=== PATIENT | female | born 1985 | race Caucasian/White ===

== ENCOUNTER → 2017-02-15 08:05 | Outpatient (CLI) | payer MEDICARE ==
[2017-02-15 08:46] LABS: BASOPHILS 0.3 % (0-2); EOSINOPHILS 1.7 % (0-7); HEMATOCRIT 38.6 % (36.0-48.0); HEMOGLOBIN 12.8 g/dL (12-16); IMMATURE GRANULOCYTES 0.5 % (0-5); LYMPHOCYTES 40.3 % (15-50); MCH 28.4 pg (26.0-34.0); MCHC 33.2 g/dL (31.0-37.0); MCV 85.8 fL (80.0-100.0); MONOCYTES 7.2 % (2-11); PLATELET COUNT 301 10x3/uL (130-400); WBC 6.7 10x3/uL (4.8-10.8)
[2017-02-15 09:08] LABS: ALBUMIN 3.3 g/dL (3.4-5.0); ALKALINE PHOSPHATASE 50 U/L (46-116); ALT (SGPT) 32 U/L (10-68); BILIRUBIN - TOTAL 0.29 mg/dL (0.2-1.3); CALC OSMOLALITY 278 mosm/kg (275-300); CALCIUM 8.6 mg/dL (8.5-10.1); CARBON DIOXIDE 25.5 mmol/L (21.0-32.0); CHLORIDE - SERUM 105 mmol/L (98-107); CHOL - HDL RATIO 3.1 ratio (2.3-4.1); CHOLESTEROL, TOTAL 183 mg/dL (0-200); CREATININE - SERUM 0.8 mg/dL (0.6-1.3); GLUCOSE 84 mg/dL (74-106); HDL CHOLESTEROL 60 mg/dL (32-96); LDL CHOLESTEROL 108 mg/dL (0-100); LDL-HDL RATIO 1.8 ratio (1.5-3.5); POTASSIUM - SERUM 3.9 mmol/L (3.5-5.1); PROTEIN - SERUM 6.6 g/dL (6.4-8.2); SODIUM 140 mmol/L (136-145); T4 THYROXIN - FREE 1.07 ng/dL (0.76-1.46); TRIGLYCERIDE 79 mg/dL (30-200); UREA NITROGEN 15 mg/dL (7-18); eGFR NON AFRICAN AMERICAN 88 mL/min (90-120)
[2017-02-15 09:37] LABS: HCG SERUM NEGATIVE (NEGATIVE)
== END | disposition home or self-care (01) ==
LOC: D.LAB 02-08 08:15 → D.RAD 02-08 08:30 → D.US 02-08 09:00 → D.NM 02-08 09:30 → D.LAB 08:05
PROVIDERS: Internal Medicine Gastroenterology
DX: R10.11 Right upper quadrant pain (principal); R11.2 Nausea with vomiting, unspecified; R53.83 Other fatigue; D18.09 Hemangioma of other sites

== ENCOUNTER 2018-05-02 12:42 | Outpatient (CLI) | payer MEDICARE ==
[~2018-05-02] VITALS: Ht 167.6 cm; Wt 104.5 kg
[2018-05-02 13:48] VITALS: Ht 167.6 cm; Wt 104.5 kg
== END 2018-05-02 13:50 | disposition home or self-care (01) ==
LOC: D.OPS 12:42
DX: R33.9 Retention of urine, unspecified (principal)

== ENCOUNTER 2019-07-21 06:11 | Day surgery (SDC) | payer MEDICARE ==
[~2019-07-21] VITALS: Ht 167.6 cm; Wt 117.9 kg
[~2019-07-21 06:11] MED LIST: AMBIEN10 MG PO; KLONOPIN1 MG PO; LAMICTAL100 MG PO; TRILEPTAL150 MG PO
[2019-07-21 06:49] LABS: HEMATOCRIT 36.1 % (36.0-48.0); HEMOGLOBIN 11.8 g/dL (12-16); MCH 28.7 pg (26.0-34.0); MCHC 32.7 g/dL (31.0-37.0); MCV 87.8 fL (80.0-100.0); MEAN PLATELET VOLUME 8.5 fL (7.4-10.4); RBC 4.11 10x6/uL (4.00-5.40); RDW 13.4 % (11.5-14.5); WBC 6.6 10x3/uL (4.8-10.8)
[2019-07-21 07:37] VITALS: BP 124/75; Ht 167.6 cm; Wt 117.9 kg
--- NOTE | 2019-07-21 11:24 | OP ---
PATIENT NAME: GUIDO PETTY MEDICAL RECORD: [id number] LOCATION:D.OPS ADMISSION DATE: SURGEON: BANG MADISON MD DATE OF OPERATION: 07/21/2019 SURGEON: Bang Madison MD ANESTHESIA: TIVA by Bruce Morfin CRNA DIAGNOSIS: Interstitial cystitis. PROCEDURES: Cystoscopy, hydrodistention of the bladder, intravesical Rimso instillation. FINDINGS: Inflamed bladder. Single ureteral orifices bilaterally with no bladder tumors. BLOOD LOSS: None. CLINICAL HISTORY: This is a 34-year-old female with symptoms of chronic urinary tract infection with pelvic pain and dyspareunia. Urine cultures have shown no growth. She comes today for intravesical Rimso instillation. She was given [employer] pet adoption counselor to the OR. DESCRIPTION OF PROCEDURE: The patient was given IV sedation. She was placed in lithotomy position and prepped and draped. A 17-[place] cystoscope with 30-degree lens was used for visualization. Bladder inflammation was noted. She was given hydrodistention to at least 600 mL of fluid in the bladder for 2 minutes. The bladder was then emptied through the scope sheath and then the scope was removed. A red rubber catheter was inserted into the bladder and 50 mL of Rimso solution was instilled into the bladder through the catheter. Once the solution was in the bladder, the catheter was removed, leaving the solution in the bladder. The patient will hold the solution in the bladder for 15 minutes and then void it out. I will see her in followup in 2 weeks' time. TRANSINT:[id number] Voice Confirmation ID: [id number] DOCUMENT ID: [id number] BANG MADISON MD at 1124 CC: [id number] DICTATION DATE: 07/21/19 0939 ENVIRONMENTAL SCIENCE PROGRAM DIRECTOR: 07/21/19 1039 [id number] [place] [id number]
[2019-07-21 13:33] LABS: HCG URINE NEGATIVE (NEGATIVE)
--- NOTE | 2019-07-21 14:28 | NUR ---
1030 DRESSED. AWAKE & ALERT. GIVEN DISCHARGE INFORMATION INCLUDING MED REC., RTC APPT., [facility] D/C INSTRUCTIONS & POST CYSTOSCOPY D/C INSTRUCTIONS. PT VOICED UNDERSTANDING. TO PRIVATE CAR PER WHEELCHAIR BY STAFF. HOME WITH MICK HUERTA R.N.
== END 2019-07-21 10:30 | disposition home or self-care (01) ==
LOC: D.OPS 06:11 → D.PAN 08:30 → D.OPS 09:45 → D.PAN 09:45 → D.OPS 10:30
PROVIDERS: Anesthesiology; ATTEND Urology
DX: N30.10 Interstitial cystitis (chronic) without hematuria (principal); R39.198 Other difficulties with micturition; R30.0 Dysuria